=== PATIENT | male | born 1995 | race Caucasian/White ===

== ENCOUNTER 2020-01-08 09:52 | Emergency (ER) | payer OTHER ==
[~2020-01-08] VITALS: Ht 182.9 cm; Wt 72.7 kg
[2020-01-08 09:52] VITALS: BP 131/79
[2020-01-08] MEDS ORDERED: IBUP-1022 PO (09:59)
[2020-01-08] MEDS ORDERED: LIDOCAINE 4% CREAM 5GM (LMX4) TOP ONE (10:15)
== END 2020-01-08 10:50 | disposition home or self-care (01) ==
LOC: M ED 09:52
DX: B02.9 Zoster without complications (principal); Z94.5 Skin transplant status

== ENCOUNTER 2021-05-13 07:47 | Emergency (ER) | payer OTHER ==
[~2021-05-13] VITALS: Ht 182.9 cm; Wt 74.1 kg
[~2021-05-13 07:47] MED LIST: IBUP-1022 PO
--- NOTE | 2021-05-13 11:57 | REP ---
INDICATION: central chest pain COMPARISON: None. TECHNIQUE: PA and lateral. FINDINGS: The mediastinum and cardiac silhouette are normal. The lung acuña are clear and without acute consolidation, effusion, or pneumothorax. The skeletal structures are intact and normal. IMPRESSION: No acute cardiopulmonary process. <Electronically signed by Juan Diego Aguilar > 05/13/21 0209
[2021-05-13] MEDS ORDERED: VENTAER INH (12:24)
[2021-05-13] MEDS ORDERED: BENZ200C70 PO (12:24)
[2021-05-13 12:41] VITALS: BP 121/77
--- NOTE | 2021-05-13 19:01 | ECGEPIP ---
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 Order Number: [id number] Reading MD: Leonor Guerin Measurements Intervals [place] Rate: 55 P: 24 [place]: 192 QRS: 75 QRSD: 96 T: 41 QT: 414 QTc: 396 Interpretive Statements Sinus bradycardia right ventricular conduction delay no prior Electronically Signed on 05-13-2021 19:00:50 EDT by Leonor Guerin
== END 2021-05-13 12:38 | disposition home or self-care (01) ==
LOC: M ED 07:47
DX: J45.909 Unspecified asthma, uncomplicated (principal); Z87.891 Personal history of nicotine dependence